=== PATIENT | female | born 1955 | race Caucasian/White ===

== ENCOUNTER 2018-09-08 04:22 | Day surgery (SDC) | payer OTHER | END 2018-09-08 09:30 | disposition home or self-care (01) | LOC: AMB-ENDOS 04:22 → CIR.AMB 07:15 → AMB-ENDOS 09:30 | DX: K57.30 Diverticulosis of large intestine without perforation or abscess without bleeding (principal); Z12.11 Encounter for screening for malignant neoplasm of colon ==